=== PATIENT | female | born 1990 | race Caucasian/White ===

== ENCOUNTER → 2016-05-29 | Outpatient (CLI) | payer OTHER | END | disposition home or self-care (01) | LOC: C.LABSPEC 16:56 | PROVIDERS: ATTEND Plastic Surgery | DX: L72.0 Epidermal cyst (principal) ==

== ENCOUNTER → 2016-06-29 | Outpatient (CLI) | payer OTHER ==
[2016-06-29 18:00] LABS: URINE APPEARANCE CLEAR (CLEAR); URINE BILIRUBIN NEG (NEG); URINE COLOR YELLOW; URINE NITRITE NEG (NEG); URINE SPECIFIC GRAVITY 1.026 (1.000-1.030); UROBILINOGEN NEG (NEG)
[2016-06-29 18:04] LABS: MANUAL MICROSCOPIC REQUIRED? NO; REVIEW REQ? NO
== END | disposition home or self-care (01) ==
LOC: C.LABSPEC 10:29
PROVIDERS: ATTEND Physician Assistant
DX: N39.0 Urinary tract infection, site not specified (principal); N89.8 Other specified noninflammatory disorders of vagina

== ENCOUNTER → 2016-07-17 | Outpatient (CLI) | payer OTHER | END | disposition home or self-care (01) | LOC: C.PAPS 10:12 | PROVIDERS: ATTEND Physician Assistant | DX: Z12.4 Encounter for screening for malignant neoplasm of cervix (principal) ==

== ENCOUNTER → 2017-06-07 | Outpatient (CLI) | payer OTHER ==
--- NOTE | 2017-06-07 16:49 | DIAGNOSTIC IMAGING REPORT ---
TWO VIEW CHEST CLINICAL HISTORY: Cough. FINDINGS: PA and lateral chest radiographs are compared to study dated 03/07/2017. The cardiomediastinal silhouette is unremarkable. The lungs and pleural spaces are clear. There is no pneumothorax. The bony thorax appears intact. IMPRESSION: No active disease in the chest. Electronically signed by: Marquez Mireles M.D. 06/07/2017 4:48 PM Dictated Date/Time: 06/07/2017 4:48 PM
== END | disposition home or self-care (01) ==
LOC: C.RAD1850 16:39
PROVIDERS: ATTEND Nurse Practitioner Family
DX: R05 Cough (principal)

== ENCOUNTER → 2017-11-15 | Outpatient (CLI) | payer OTHER | END | disposition home or self-care (01) | LOC: C.LABSPEC 12:54 | PROVIDERS: ATTEND Obstetrics & Gynecology | DX: Z34.81 Encounter for supervision of other normal pregnancy, first trimester (principal) ==

== ENCOUNTER → 2017-11-23 | Outpatient (CLI) | payer OTHER ==
[2017-11-23 13:17] LABS: BASO % 0.5 %; BASO ABS # 0.04 K/uL (0-0.2); EOS ABS # 0.08 K/uL (0-0.5); HEMATOCRIT 35.1 % (37-47); HEMOGLOBIN 12.1 g/dL (12.0-16.0); IG# 0.02 K/uL (0.00-0.02); LYMPH % 19.3 %; LYMPH ABS # 1.56 K/uL (1.2-3.4); MEAN CELL VOLUME 87.8 fL (80-100); MEAN CORPUSCULAR HEMOGLOBIN 30.3 pg (25-34); MEAN CORPUSCULAR HGB CONC 34.5 g/dl (32-36); MEAN PLATELET VOLUME 12.4 fL (7.4-10.4); MONO % 7.3 %; MONO ABS # 0.59 K/uL (0.11-0.59); NEUT % 71.7 %; NEUT ABS # 5.81 K/uL (1.4-6.5); PLATELET COUNT 171 K/uL (130-400); RED CELL DISTRIBUTION WIDTH CV 13.2 % (11.5-14.5); RED CELL DISTRIBUTION WIDTH SD 42.7 fL (36.4-46.3)
== END | disposition home or self-care (01) ==
LOC: C.LAB1850 12:44
PROVIDERS: ATTEND Obstetrics & Gynecology
DX: Z34.81 Encounter for supervision of other normal pregnancy, first trimester (principal)

== ENCOUNTER 2018-05-12 23:31 | Inpatient (IN) ==
[2018-05-13] MEDS ORDERED: OXYTOCIN 30 UNITS/500 ML BAG IV PRN ×2 (00:40→01:15)
[2018-05-13] MEDS ORDERED: LACTATED RINGER'S 1,000 ML IV PRN (00:40)
[2018-05-13] MEDS ORDERED: LACTATED RINGER'S 1,000 ML IV SCH (00:45)
[2018-05-13] MEDS ORDERED: BENZOCAINE 20% AER SPR 82.5 GM CAN EXT PRN (01:15)
[2018-05-13] MEDS ORDERED: DIPHTHERIA/TETANUS/PERTUSSIS 0.5 ML SYR/VIAL IM ONE (01:15)
[2018-05-13] MEDS ORDERED: ACETAMINOPHEN 325 MG TAB PO PRN (01:15)
[2018-05-13] MEDS ORDERED: IBUPROFEN 600 MG TAB PO PRN (01:15)
[2018-05-13] MEDS ORDERED: HYDROCORTISONE ACETATE 25 MG SUPP PR PRN (01:15)
[2018-05-13] MEDS ORDERED: BISACODYL 10 MG SUPP PR PRN (01:15)
[2018-05-13] MEDS ORDERED: SUPERCREAM 0.870% 15 GM JAR EXT PRN (01:15)
[2018-05-13 01:47] LABS: Hematocrit (blood only) 37.2 % (37-47); Hemoglobin 12.6 g/dL (12.0-16.0); Mean Corpuscular Volume 90.7 fL (80-100); RDW Coefficient of Variation 13.5 % (11.5-14.5); RDW Standard Deviation 44.6 fL (36.4-46.3); White Blood Count 12.39 K/uL (4.8-10.8)
[2018-05-13 01:48] LABS: Mean Corpuscular Hgb Conc 33.9 g/dL (32-36); Mean Platelet Volume 13.8 fL (7.4-10.4); Platelet Count 137 K/uL (130-400)
[2018-05-13] MEDS: DOCUSATE SODIUM 100 MG CAP PO SCH ×2 (07:29→21:07)
[2018-05-13] MEDS: PRENATAL VITAMIN 1 TAB PO SCH (07:29)
--- NOTE | 2018-05-13 08:08 | Delivery Summary ---
DATE OF OPERATION: 05/13/2018 PROCEDURE: Normal spontaneous vaginal delivery. SURGEON: Farhan Esposito MD PREOPERATIVE DIAGNOSES: 1. Single intrauterine at 39 weeks 2 days gestational age. 2. Labor. POSTOPERATIVE DIAGNOSES: Same, delivered. ESTIMATED BLOOD LOSS: 150 mL. DRAINS: None. FLUIDS: Continuous lactated Ringer. URINE OUTPUT: Not measured. COMPLICATIONS: None. FINDINGS: Viable male infant with weight pending and Apgars of 8 and 9 at 1 and 5 minutes respectively. INDICATIONS: Karyn is a 27-year-old G2, P1-0-0-1, admitted at 39 weeks 2 days gestational age with an DICK of 05/18/2018. At presentation, the patient was initially found to be 4 cm dilated, 80% effaced, -1 station. The patient was initially offered a jaylin, although during the discussion of offering the labor jaylin, the patient noted a significant increase in the contraction intensity. The patient was reevaluated and found to be 7 cm dilated, 90% effaced, 0 station. The admission process was then initiated for the patient. The patient quickly progressed in labor to complete-complete +2 and then underwent rupture of membranes during cervical exam at complete-complete +2. The entire in-house labor course was approximately 20 to 30 minutes. DESCRIPTION OF PROCEDURE: The patient presented and progressed to 10 cm dilated, 100% effaced, positive 2 station. Pushed over intact perineum without anesthesia and delivered a viable male infant, weight and Apgars as noted above. Head of the delivered in KWADWO position, rest into right transverse. No nuchal cord was noted. Body and shoulders quickly followed. was noted to be vigorous upon delivery. The was delivered to the maternal abdomen. A 1-minute delayed cord clamping was initiated. The cord was then double clamped and cut. remained on maternal abdomen. The cord blood was then obtained. Attention was then turned to delivery of the placenta, it was delivered intact with 3-vessel cord with gentle cord traction. On inspection of the vagina, perineum, and cervix, there was noted to be no lacerations requiring repair. There was a mild brush burn, but it was hemostatic. Sponge and instrument counts were correct at the completion of the case. I attest to the content of the Intraoperative Record and any orders documented therein. Any exception s are noted below.
[2018-05-14 07:06] LABS: Hematocrit (blood only) 36.3 % (37-47); Hemoglobin 12.2 g/dL (12.0-16.0); Mean Corpuscular Hgb Conc 33.6 g/dL (32-36); Mean Corpuscular Volume 91.9 fL (80-100); Mean Platelet Volume 12.9 fL (7.4-10.4); Platelet Count 120 K/uL (130-400); RDW Coefficient of Variation 13.9 % (11.5-14.5); RDW Standard Deviation 45.8 fL (36.4-46.3); Red Blood Count 3.95 M/uL (4.2-5.4); White Blood Count 12.16 K/uL (4.8-10.8)
--- NOTE | 2018-05-14 07:12 | Obstetrical Progress Note ---
Date of Service <Aide Araujo MD - Last Filed: 05/14/18 07:12> May 14, 2018 Assessment & Plan <Aide Araujo MD - Last Filed: 05/14/18 07:12> (1) Normal intrauterine in third trimester: 27yo with . PPD #1 Routine Care: -ambulation as tolerated -hydration +diet -Pain control Subjective <Aide Araujo MD - Last Filed: 05/14/18 07:12> Ambulation: ambulating normally Voiding: no voiding problems Passing Gas:: Yes Diet Tolerance:: regular diet Lochia:: Moderate Feeding Type:: breast feeding Current Pain Level(1-10): 4 Constitutional: no fever and no chills Respiratory: no dyspnea Cardiovascular: no chest pain, no palpitations and no calf pain Gastrointestinal: no nausea and no vomiting Genitourinary (female): no dysuria Neurologic: no headache(s) Physical Exam <Aide Araujo MD - Last Filed: 05/14/18 07:12> Vital Signs (Past 24 Hours) Last Vital Signs Temp 36.7 C 05/14/18 04:35 Pulse 91 H 05/14/18 04:35 Resp 18 05/14/18 04:35 BP 93/66 L 05/14/18 04:35 Pulse Ox 95 05/13/18 12:00 Respiratory normal respiratory effort, lungs clear to auscultation Cardiovascular RRR, no murmur, no edema Genitourinary OB Exam Abdomen: + fundal height Fundus: + firm Results & Data <Aide Araujo MD - Last Filed: 05/14/18 07:12> Laboratory Results Laboratory Results - last 24 hr 05/14/18 06:20 WBC 12.16 H RBC 3.95 L Hgb 12.2 Hct 36.3 L MCV 91.9 MCH 30.9 MCHC 33.6 RDW Std Deviation 45.8 RDW Coeff of Norma 13.9 Plt Count 120 L MPV 12.9 H Platelet Estimate Decreased Medications Administered Home Medications vit-iron fum-folic ac [ Vitamin] 1 tab PO DAILY 05/11/18 [ History Confirmed 05/13/18] Active Medications Acetaminophen (Tylenol) 650 mg PO Q6H PRN PRN Reason: Pain/MAJANO/Fever Stop: 06/12/18 01:14 Benzocaine (Dermoplast Pain Relieving [place]) 1 appln EXT PRN PRN PRN Reason: Perineal Discomfort Stop: 06/12/18 01:14 Bisacodyl (Dulcolax) 5 mg PO 2000 [facility] Stop: 05/14/18 20:01 Bisacodyl (Dulcolax) 10 mg OK DAILY PRN PRN Reason: No BM on 2nd post- day Stop: 06/12/18 01:14 Cocaine HCl (Supercream 0.870%) 1 gm EXT BID PRN PRN Reason: Hemorrhoidal Inflammation Stop: 05/27/18 01:14 Docusate Sodium (Colace) 100 mg PO BID [facility] Stop: 06/12/18 08:59 Last Admin: 05/13/18 21:07 Dose: Not Given Hydrocortisone (Anusol Hc) 25 mg OK BID PRN PRN Reason: Hemorrhoidal Inflammation Stop: 06/12/18 01:14 Oxytocin (Pitocin) 30 units in 500 mls @ 333.333 mls/hr IV .Q1H30M PRN; Protocol PRN Reason: BLEEDING CONTROL Stop: 06/12/18 01:14 Ibuprofen (Motrin) 600 mg PO Q4H PRN PRN Reason: Pain/MAJANO/Cramping/Fever Stop: 06/12/18 01:14 Prenat Multivit/Field Counsel/Iron/Folic Ac ( Vitamin) 1 tab PO QAM [facility] Stop: 06/12/18 08:59 Last Admin: 05/13/18 07:29 Dose: 1 tab <Merced Hui MD - Last Filed: 05/14/18 08:26> Co-Signing Physician Notes Patient requests discharge home today. Instructions reviewed and discharge acceptable.
[2018-05-14] MEDS: PRENATAL VITAMIN 1 TAB PO SCH (08:48)
[2018-05-14 10:19] VITALS: BP 122/84; PULSE 98; TEMP 97.7; O2SAT 98
[2018-05-14] MEDS ORDERED: BISACODYL 5 MG TABEC PO SCH (20:00)
== END 2018-05-14 12:25 | disposition home or self-care (01) | DRG 807 ==
LOC: OPB 23:31 → 4S1 23:32 → 4S2 05-13 04:59